=== PATIENT | male | born 1970 | race Two or more races ===

== ENCOUNTER 2022-05-16 17:51 | Emergency (ER) | payer SELFPAY ==
--- NOTE | ~2022-05-16 | XR_ITS ---
EXAMINATION: XR FOOT, LEFT CLINICAL INFORMATION: Injury to left foot. COMPARISON: None TECHNIQUE: AP, lateral, and oblique views of the left foot. FINDINGS: There is a comminuted fracture of the proximal phalange of the great toe. Fracture involves the mid to distal shaft does extend to the articular surface of the IP joint of the toe. Fracture fragments are slightly displaced. There is an associated soft tissue laceration at the lateral side of the base of the first toe. No radiopaque foreign body seen at the laceration. A bandage is present in the web space between the first and second toe. There are 2 metallic foreign bodies in the soft tissues at the plantar side of the foot. Each measure about 5 to 6 mm projecting over the arch of the foot. XR/XR foot LT min 3V IMPRESSION: Comminuted intra-articular fracture of the proximal phalange of the great toe. Associated laceration of great toe.
[2022-05-16 18:34] VITALS: BP 113/93; PULSE 84; RESP 18; O2SAT 96; BMI 30.2
== END 2022-05-16 22:19 | disposition left against medical advice (07) ==
PROVIDERS: Emergency Provider Emergency Medicine
DX: M79.672 Pain in left foot (principal)
CPT/HCPCS: 73630; 99281; 99283

== ENCOUNTER 2023-02-17 00:24 | Emergency (ER) | payer MEDICAID, OTHER, SELFPAY ==
--- NOTE | ~2023-02-17 | XR_ITS ---
EXAMINATION: XR CHEST CLINICAL INFORMATION: Chest pain COMPARISON: None available. TECHNIQUE: Frontal view of the chest was obtained. FINDINGS: No significant abnormality is noted involving the heart, lungs, mediastinum, bony thorax or soft tissues. XR/XR chest 1V IMPRESSION: Unremarkable chest examination.
[2023-02-17 00:42] VITALS: BP 125/83; BP 150/92; PULSE 70; PULSE 90; RESP 20; TEMP 37; O2SAT 95; O2SAT 96; BMI 32.6
--- NOTE | 2023-02-17 01:01 | ECG_ITS ---
Test Reason : CHEST PAIN Blood Pressure : / mmHG Vent. Rate : 070 BPM Atrial Rate : 070 BPM P-R Int : 166 ms QRS Dur : 100 ms QT Int : 394 ms P-R-T Axes : 053 028 024 degrees QTc Int : 425 ms Normal sinus rhythm Normal EKG No previous ECGs available Referred By: Corazon Chilel Electronically Signed By:LISA DE LEÓN
--- NOTE | 2023-02-17 01:02 | ED_ITS ---
HPI - Chest Pain General Chief Complaint: Chest Pain Stated Complaint: Chest pain History of Present Illness HPI narrative: Patient is a 52-year-old male with a history of coronary artery disease. Presents today with having midsternal chest pain radiating to bilateral shoulder. Patient claims he had a stent put in in 2013 somewhere in [place]. He did not remember to town. There is no shortness of breath has no diaphoresis associated with this pain it is however is similar to previous [facility]. Patient denies any leg swelling no history of blood clots. No history of diabetes positive history of hypertension no history of smoking no history of [facility] patient is from home. No long distance travel. Pain has improved after aspirin and nitropaste Related Data Allergies Allergy/AdvReac Type Severity Reaction Status Date / Time No Known Allergies Allergy Verified 05/16/22 18:34 Review of Systems Review of Systems: Positive chest pain Yes all other systems are reviewed and are negative [facility] Past Medical History Attestation statement: The following information was validated with the patient. Social History Social History Smoked in Last 30 Days: No Advance Directives: No Advance Directives Information Provided: No Physical Exam Vital Signs: Vital Signs: Last Vital Signs Temp 98.6 F 02/17/23 00:42 Pulse 70 02/17/23 00:42 Resp 20 02/17/23 00:42 BP 125/83 02/17/23 00:42 Pulse Ox 96 02/17/23 00:42 O2 Del Method Room Air 02/17/23 00:42 BMI result Body Mass Index 32.6 Appearance: Alert. Oriented X3. No acute distress. Eyes: Pupils equal, round and reactive to light. ENT: Pharynx normal. Neck: Normal inspection. Neck supple. No lymph nodes noted. No crepitus CVS: Normal heart rate and rhythm. Pulses normal. Normal S1 and S2 Respiratory: No respiratory distress. Breath sounds normal. No Wheezing. No rales Abdomen: Soft and nontender. No rigidity. No distention. good BS x4 Skin: Skin warm and dry. Normal skin color. Normal skin turgor. Extremities: No lower extremity edema. Neurovascular intact to all extremities. No Lacerations. No Rash Neuro: Oriented X 3. No motor deficit. No sensory deficit. Moving all extermities. No slurred speech Medications Administered Discontinued Medications Generic Name Dose Route Start Last Admin Trade Name Aida PRN Reason Stop Dose Admin Hydromorphone HCl 0.5 mg 02/17/23 01:01 02/17/23 01:44 Hydromorphone Hcl 0.5 Mg/0.5 Ml Syringe IVPUSH 02/17/23 01:02 0.5 mg ONCE ONE Administration Protocol Medical Decision Making Medical Decision Making [facility] Narrative: Positive chest pain. Patient claims it is very similar to her previous bouts of heart attack which required possible stenting. Patient claims that was done in another hospital in [place] but he is not sure which 1. It is not associated with shortness breath or diaphoresis. Patient's chest pain started approximately 45 minutes to an hour prior to arrival for sets of cardiac enzyme was negative. Second set of enzymes was in the 20s. A 3rd set of enzyme was done at 06:00 the results was over 60. Patient's repeat EKG is essentially unchanged. His 1st EKG done at 01:00 showed a sinus rhythm heart rate is 70 MD QRS QTC within normal limits there is no acute ST segment elevation noted. A 2nd EKG done at 06:30 also show sinus rhythm heart rate is 60 MD QRS QTC within normal limits there is no acute ST segment elevation. Patient chest pain is going. He is in no distress. There is E received aspirin. Will give a dose of Lovenox. Patient's case consulted by Cardiology. Bland patient would benefit being transferred to [facility]. Case discussed with patient. Risk and benefit of transfer explained. Risk including the risk of being on an ambulance. Benefit being Interventional Cardiology available at [facility] as patient have positive troponin. Case discussed with [facility] transfer center. [facility] has accepted transfer. Case discussed with Dr. Manjarrez Differential Diagnosis Differential Diagnoses: The differential diagnosis associated with the presentation includes NSTEMI Consult Healthcare Provider Management of the patient was discussed with: Music Engineer Cardiology Lab Data [facility] Lab Attestation statement: I reviewed the patient's lab results. 02/17/23 01:40 02/17/23 01:40 Labs: Lab Results 02/17/23 02/17/23 02/17/23 Range/Units 01:40 01:40 01:40 WBC 8.1 (4.8-10.8) X10*3/uL RBC 4.55 L (4.60-5.80) X10*6/uL Hgb 13.7 L (14.0-18.0) g/dl Hct 40.6 L (42.0-52.0) % MCV 89.2 (80.0-98.0) fL MCH 30.1 (27.0-33.0) pg MCHC 33.7 (31.0-36.0) g/dl RDW 12.6 (11.0-16.0) % Plt Count 281 (160-400) X10*3/uL MPV 9.3 L (9.4-12.4) fL Immature Gran % (Auto) 0.2 (0.0-0.4) % Neut % (Auto) 52.1 (45-73) % Lymph % (Auto) 32.1 (20-40) % [place] % (Auto) 10.3 (2-11) % Eos % (Auto) 4.7 H (0-4) % Baso % (Auto) 0.6 (0-2) % Lymph # (Auto) 2.6 (1.2-4.9) X10*3/uL [place] # (Auto) 0.8 (0.1-1.2) X10*3/uL Eos # (Auto) 0.4 (0.0-0.4) X10*3/uL Baso # (Auto) 0.1 (0.0-0.2) X10*3/uL Abs Immat Gran (auto) 0.02 (0.00-0.03) X10*3/uL Absolute Neuts (auto) 4.2 (2.0-8.3) x10*3/uL Absolute Nucleated RBC 0.000 (0.0-0.012) X10*3/uL Nucleated RBC % (auto) 0.0 (0.0-0.2) /100WBC Sodium 140 (135-145) mmol/L Potassium 3.8 (3.3-5.1) mmol/L Chloride 109 H (96-108) mmol/L Carbon Dioxide 22 (22-29) mmol/L Anion Gap 13 (12-20) BUN 16 (9-16) mg/dL Creatinine 0.88 (0.5-1.4) mg/dL Estim Creat Clear Calc 102.9 Estimated GFR > 60 Random Glucose 154 H (60-115) mg/dL Calcium 9.5 (8.4-10.2) mg/dL Troponin I High Sens 6.1 (<3.5-35.0) ng/L 02/17/23 02/17/23 Range/Units 04:09 05:54 WBC (4.8-10.8) X10*3/uL RBC (4.60-5.80) X10*6/uL Hgb (14.0-18.0) g/dl Hct (42.0-52.0) % MCV (80.0-98.0) fL MCH (27.0-33.0) pg MCHC (31.0-36.0) g/dl RDW (11.0-16.0) % Plt Count (160-400) X10*3/uL MPV (9.4-12.4) fL Immature Gran % (Auto) (0.0-0.4) % Neut % (Auto) (45-73) % Lymph % (Auto) (20-40) % [place] % (Auto) (2-11) % Eos % (Auto) (0-4) % Baso % (Auto) (0-2) % Lymph # (Auto) (1.2-4.9) X10*3/uL [place] # (Auto) (0.1-1.2) X10*3/uL Eos # (Auto) (0.0-0.4) X10*3/uL Baso # (Auto) (0.0-0.2) X10*3/uL Abs Immat Gran (auto) (0.00-0.03) X10*3/uL Absolute Neuts (auto) (2.0-8.3) x10*3/uL Absolute Nucleated RBC (0.0-0.012) X10*3/uL Nucleated RBC % (auto) (0.0-0.2) /100WBC Sodium (135-145) mmol/L Potassium (3.3-5.1) mmol/L Chloride (96-108) mmol/L Carbon Dioxide (22-29) mmol/L Anion Gap (12-20) BUN (9-16) mg/dL Creatinine (0.5-1.4) mg/dL Estim Creat Clear Calc Estimated GFR Random Glucose (60-115) mg/dL Calcium (8.4-10.2) mg/dL Troponin I High Sens 27.0 D 62.0 H D (<3.5-35.0) ng/L Independent Interpretation I performed an independent interpretation of an: EKG Interpretation: First EKG done at 01:30 in the morning shows sinus rhythm heart rate is 70 really are generous QT within normal limits as no acute ST segment elevation. Repeat EKG done at 06:30 in the morning shows essentially the same heart rate is approximately 65 MD QRS QTC within normal limits is no acute ST segment elevation. Radiology Impression Discussion of test interpretation with radiology: I have reviewed the radiologist's reading. Radiologist Impression: Chest x-ray negative Independent Historian Clinical information obtained from an independent historian. History obtained from or confirmed by: Spouse Chronic Conditions Coronary artery disease Critical Care Time Critical Care Time Critical Care Time: Yes Total Critical Care Time: 40 Attestation: I have personally provided 40 minutes of critical care time exclusive of time spent on separately billable procedures. Time includes review of lab data, radiology results, discussion with consultants, and monitoring for potential decompensation. Interventions were performed as documented above Discharge Plan Discharge Clinical Impression: Non-ST elevation [facility] (NSTEMI) Patient Disposition: Replaced By [facility] Transfer Details: [facility]
[2023-02-17] MEDS: HYDROmorphone HCl 0.5 MG/0.5 ML SYRINGE IVPUSH (01:44)
[2023-02-17 01:56] LABS: MANUAL DIFF FLAG NO
[2023-02-17 01:58] LABS: Basophils Absolute Auto 0.1 X10*3/uL (0.0-0.2); Basophils Percent Auto 0.6 % (0-2); Eosinophils Absolute Auto 0.4 X10*3/uL (0.0-0.4); Eosinophils Percent Auto 4.7 % (0-4); Hematocrit 40.6 % (42.0-52.0); Hemoglobin 13.7 g/dl (14.0-18.0); Imm Gran Abs Auto 0.02 X10*3/uL (0.00-0.03); Imm Gran Pct Auto 0.2 % (0.0-0.4); Lymphocytes Absolute Auto 2.6 X10*3/uL (1.2-4.9); Lymphocytes Percent Auto 32.1 % (20-40); Mean Corpuscular HGB Conc 33.7 g/dl (31.0-36.0); Mean Corpuscular Hemoglobin 30.1 pg (27.0-33.0); Mean Corpuscular Volume 89.2 fL (80.0-98.0); Mean Platelet Volume 9.3 fL (9.4-12.4); Monocytes Absolute Auto 0.8 X10*3/uL (0.1-1.2); Monocytes Percent Auto 10.3 % (2-11); Neutrophils Absolute Auto 4.2 x10*3/uL (2.0-8.3); Neutrophils Percent Auto 52.1 % (45-73); Platelet Count 281 X10*3/uL (160-400); Red Blood Count 4.55 X10*6/uL (4.60-5.80); Red Cell Distribution Width 12.6 % (11.0-16.0); White Blood Count 8.1 X10*3/uL (4.8-10.8)
[2023-02-17 02:15] LABS: Anion Gap 13 (12-20); Blood Urea Nitrogen 16 mg/dL (9-16); Calcium 9.5 mg/dL (8.4-10.2); Carbon Dioxide 22 mmol/L (22-29); Chloride 109 mmol/L (96-108); Creatinine Clr Calc Pharmacy 102.9; Estimated Glomerular Filt Rate > 60; Glucose Random 154 mg/dL (60-115); Potassium 3.8 mmol/L (3.3-5.1); Sodium 140 mmol/L (135-145)
[2023-02-17 02:20] LABS: Troponin-I High Sensitivity 6.1 ng/L (<3.5-35.0)
--- NOTE | 2023-02-17 06:32 | ECG_ITS ---
Test Reason : CHEST PAIN Blood Pressure : / mmHG Vent. Rate : 062 BPM Atrial Rate : 062 BPM P-R Int : 170 ms QRS Dur : 112 ms QT Int : 404 ms P-R-T Axes : 033 019 004 degrees QTc Int : 410 ms Normal sinus rhythm Normal ECG When compared with ECG of 17-FEB-2023 01:33, No significant change was found Referred By: Corazon Chilel Electronically Signed By:LISA DE LEÓN
[2023-02-17] MEDS: Enoxaparin Sodium 100 MG/ML SYRINGE 90 MG SUBCUT (07:19)
[2023-02-17 07:21] VITALS: BP 143/99; PULSE 72; RESP 9; TEMP 36.5; O2SAT 97
--- NOTE | 2023-02-17 07:25 | PC.NURSE ---
assumed care of pt at 0700. pt is pleasant, calm, and cooperative. a&o x4. pt visitor at bedside. vss, medicated per mar. resting quietly on stretcher in no apparent distress. awaiting transport to [facility] [place]. wctm
[2023-02-17 07:46] LABS: Hematocrit 43.5 % (42.0-52.0); Hemoglobin 14.6 g/dl (14.0-18.0); Mean Corpuscular HGB Conc 33.6 g/dl (31.0-36.0); Mean Corpuscular Hemoglobin 30.3 pg (27.0-33.0); Mean Corpuscular Volume 90.2 fL (80.0-98.0); Mean Platelet Volume 8.9 fL (9.4-12.4); Platelet Count 282 X10*3/uL (160-400); Red Blood Count 4.82 X10*6/uL (4.60-5.80); Red Cell Distribution Width 12.6 % (11.0-16.0); White Blood Count 8.3 X10*3/uL (4.8-10.8)
[2023-02-17 07:52] LABS: Prothrombin Time 11.6 SEC (10.0-13.1)
--- NOTE | 2023-02-17 07:55 | MHC.EDTECH ---
@[id number] called [facility] to request transfer. Individual on the phone requested to speak with Dr. Chilel regarding pt information and diagnosis. Dr. Chilel took the call right away.
--- NOTE | 2023-02-17 07:56 | MHC.EDTECH ---
@[id number] [facility] called back with a room assignment. Pt will be going to [facility] [place] [address], room 14. Nurse to Nurse number is .
[2023-02-17 08:03] LABS: IDNOW Serial# 9DB6401D
[2023-02-17 08:04] LABS: COVID-19 Test Negative (Negative)
[2023-02-17 08:42] VITALS: BP 141/87; PULSE 68; RESP 21; TEMP 36.6; O2SAT 96
--- NOTE | 2023-02-17 09:00 | PC.NURSE ---
this RN attempted to call for nurse to nurse report to [facility] x2. left message on receiving nurses line. will try again.
== END 2023-02-17 09:08 | disposition short-term general hospital (02) ==
PROVIDERS: Emergency Provider Emergency Medicine Emergency Medical Services
DX: I21.4 Non-ST elevation (NSTEMI) myocardial infarction (principal); I10 Essential (primary) hypertension; Z20.822 Contact with and (suspected) exposure to COVID-19
CPT/HCPCS: 36415; 71045; 80048; 84484; 85025; 85027; 85610; 85730; 87635; 93005; 96372; 96374; 99285; J1170; J1650

== ENCOUNTER 2023-04-09 11:32 | Outpatient (AMB) | payer MEDICAID, SELFPAY ==
--- NOTE | 2023-04-09 11:34 | A.OFFVIS_ITS ---
Intake Vital Signs 04/09/23 11:35 Height 5 ft 6 in Weight 213 lb 6.519 oz BMI 34.4 BP 100/64 Blood Pressure Location Lt brachial Position Sitting Pulse 65 Pulse Source Monitor Intake Visit Reasons: [facility] FUP AFTER CARDIAC CATH Intake Note: [facility] follow up with EKG after cardiac cath. Insurance Producer Required: Yes Insurance Producer Language: Citizen [place] Insurance Producer Name: Sally- daughter Accompanied by: Daughter Allergies No Known Allergies Allergy (Verified 04/09/23 11:39) Medication List - Last Reconciled 04/09/23 by Galo Nolan MD aspirin 81 mg PO DAILY atorvastatin 80 mg PO BEDTIME lisinopril 5 mg PO DAILY metformin 500 mg PO BID metoprolol succinate ER 100 mg PO DAILY ticagrelor (Brilinta) 90 mg PO BID 90 days HPI HPI Comments History of Present Illness Details Pleasant 52 year gentleman is here for follow-up. He has known history of coronary disease and underwent RCA PCI in the past in [place] few years ago. He presented to [facility] recently with chest discomfort and ruled in for NSTEMI. He was transferred to [facility] for diagnostic angiography. Diagnostic angiography showed severe ostial LAD and proximal LAD stenosis and mid RCA stenosis. These were treated with drug-eluting stents. He has been on aspirin ticagrelor and has been doing well. His has noticed that he gets short of breath when he exerts himself. He is going to cardiac rehabilitation but feels that he has not wished significantly there and does not get any symptoms there. He has no history of asthma. He is denying any dyspnea at rest or inability to take deep breaths which is usually described by patient as a side effect of Brilinta. PENDING SALE TO [facility] Surgical History (Updated 04/09/23 @ 12:06 by Galo Nolan MD) H/O hand surgery History of nasal surgery Hx of cardiac cath Family History Mother Heart disease HTN (hypertension) Diabetes Father HTN (hypertension) Diabetes Social History (Updated 04/09/23 @ 11:42 by DIANNA Torres) Alcohol intake: never Patient Tobacco Use Status: Never used Tobacco Review of Systems Const Denies weakness ENT Denies dizziness Card Denies chest pain, Denies chest pain with activity, Denies syncope, Denies rapid heart rate, Denies pedal edema, Denies edema, Denies leg edema, Denies lightheadedness, Denies palpitations, Denies dyspnea, Denies dyspnea on exertion and Denies orthopnea Resp Denies cough, Denies dyspnea and Denies dyspnea on exertion GI Denies hematochezia and Denies change in stool character Musc Denies abnormal gait, Denies muscle cramps, Denies muscle weakness, Denies numbness, Denies radiating pain into limb and Denies tingling Neuro Denies abnormal gait, Denies dizziness, Denies syncope, Denies numbness, Denies tingling and Denies weakness Endo Denies palpitations Physical Exam Vital Signs: Last Vital Signs Pulse 65 04/09/23 11:35 BP 100/64 04/09/23 11:35 BMI result Body Mass Index 34.4 GENERAL APPEARANCE: in no acute distress, pleasant. NECK: no carotid bruit, no jugular venous distention. SKIN: no suspicious lesions, warm and dry. HEART: no murmurs, regular rate and rhythm. LUNGS: clear to auscultation bilaterally. ABDOMEN: soft, nontender. EXTREMITIES: no edema. PERIPHERAL PULSES: equal. NEUROLOGIC: No gross deficits, AAO X 3 Office Procedures EKG Details: Sinus rhythm 65 beats per minute, normal axis, nonspecific inferior T-wave changes, QTC 405 milliseconds. [id number], Complete Assessment & Plan Assessment & Plan (1) S/P coronary angioplasty: Code(s): Z98.61 - Coronary angioplasty status (2) CAD (coronary artery disease): Code(s): I25.10 - Atherosclerotic heart disease of [place] coronary artery without angina pectoris Plan Very pleasant 52-year-old gentleman who is here for follow-up. He had LAD and RCA PCI. He is on aspirin and Brilinta. I think he should continue their dual antiplatelet therapy for at least a year. After that my plan would be to put him on Plavix monotherapy. If he has any affordability issues with ticagrelor or continues to complain of dyspnea then I think we should transition to Plavix after giving him a 300 mg load. His blood pressure is borderline low but he is denying any significant symptoms like dizziness or lightheadedness currently. I have advised him to keep himself well hydrated. He is doing cardiac rehabilitation regularly. We will get a fasting lipid panel on him. We will see back in few months. He is not in heart failure currently. I think with progressive cardiac rehabilitation is dyspnea will improve. If he continues to get dyspnea then will transition to Plavix. Thank you for allowing me to participate in the care of your patient. Please feel free to contact me if you have any questions. Orders: Orders Lipid Panel Today I25.10 - Atherosclerotic heart disease of [place] coronary artery without angina pectoris Coding Level of Care Code Est Pt Level 4 (52121) Diagnoses S/P coronary angioplasty Z98.61 CAD (coronary artery disease) I25.10 CPT Codes EKG - CPT: 03936-[id number], Complete ([id number])
[2023-04-09 11:35] VITALS: BP 100/64; PULSE 65; BMI 34.4
== END 2023-04-09 12:04 | disposition home or self-care (01) ==
PROVIDERS: Visit Provider Internal Medicine Cardiovascular Disease
DX: Z98.61 Coronary angioplasty status (principal); I25.10 Atherosclerotic heart disease of native coronary artery without angina pectoris
CPT/HCPCS: 93010; 99214

== ENCOUNTER → 2023-04-09 11:32 | Outpatient (BNVA) | payer MEDICAID, OTHER, SELFPAY | PROVIDERS: Visit Provider Internal Medicine Cardiovascular Disease | DX: I25.10 Atherosclerotic heart disease of native coronary artery without angina pectoris (principal); I10 Essential (primary) hypertension; I21.4 Non-ST elevation (NSTEMI) myocardial infarction; Z98.61 Coronary angioplasty status; Z98.890 Other specified postprocedural states | CPT/HCPCS: 93005; 99212 ==

== ENCOUNTER 2024-04-18 08:41 | Outpatient (AMB) | payer SELFPAY ==
[2024-04-18 08:43] VITALS: BP 100/62; PULSE 67; BMI 31.3
--- NOTE | 2024-04-18 08:43 | A.OFFVIS_ITS ---
Vital Signs 04/18/24 08:43 Height 5 ft 6 in Weight 194 lb 0.108 oz BMI 31.3 BP 100/62 Blood Pressure Location Rt brachial Position Sitting Pulse 67 Pulse Source Monitor Intake Visit Reasons: overdue f/u needs med Oil Expeller Required: No Oil Expeller Name: carmelo ojeda [id number] Allergies No Known Allergies Allergy (Verified 04/18/24 08:45) Medication List - Last Reconciled 04/18/24 by Radha Landers, INSPECTOR OF WEIGHTS AND MEASURES-C aspirin 81 mg PO DAILY atorvastatin 80 mg PO BEDTIME dulaglutide (Trulicity) 0.75 mg subcut QWEEK lisinopril 5 mg PO DAILY metformin 500 mg PO BID metoprolol succinate ER 100 mg PO DAILY ticagrelor (Brilinta) 90 mg PO BID 90 days HPI HPI overdue f/u needs med: Details: John is a 53-year-old male with past medical history of hyperlipidemia, CAD with prior RCA PCI in [place] a few years ago. Last year he had NSTEMI with placement of stents in the proximal LAD and mid RCA. His last prior visit to our office was 04/09/2023. Today he reports he has been doing well over the last year. He denies any chest discomfort at rest or with activity. He does report feeling short of breath when he squats. He denies shortness of breath when he is walking, climbing stairs or doing other physical activity. No PND, orthopnea or edema. No lightheadedness, presyncope, syncope, falls. 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 Taking all meds as directed. No bleeding issues reported. 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 [facility] Surgical History H/O hand surgery History of nasal surgery Hx of cardiac cath Family History Mother Heart disease HTN (hypertension) Diabetes Father HTN (hypertension) Diabetes Heart disease Social History Alcohol intake: never Patient Tobacco Use Status: Never used Tobacco Review of Systems Const All systems reviewed & are unremarkable except as noted in HPI and below ENT Denies dizziness Card Denies chest pain, Denies chest pain at rest, Denies chest pain with activity, Denies rapid heart rate, Denies pedal edema, Denies edema, Denies leg edema, Denies lightheadedness, Denies palpitations, Reports dyspnea, Denies dyspnea on exertion and Denies orthopnea Resp Denies cough, Reports dyspnea and Denies dyspnea on exertion GI Denies hematochezia and Denies change in stool character Musc Denies abnormal gait, Denies limited range of motion, Denies muscle cramps, Denies muscle weakness, Denies numbness, Denies radiating pain into limb, Denies stiffness and Denies tingling Neuro Denies abnormal gait, Denies dizziness, Denies numbness and Denies tingling Endo Denies palpitations Physical Exam Vital Signs: Last Vital Signs Pulse 67 04/18/24 08:43 BP 100/62 04/18/24 08:43 BMI result Body Mass Index 31.3 Const General: cooperative, healthy appearing, comfortable and no acute distress Orientation/consciousness: patient oriented x3 Neck Neck: Yes normal visual inspection and Yes no JVD Resp Effort & Inspection: normal respiratory effort Auscultation: clear to auscultation bilaterally, no rales, no rhonchi and no wheezes Cardio Jugular venous distension: no JVD Rate: regular rate Rhythm: regular rhythm Heart sounds: S1 normal heart sound present, S2 normal heart sound present, no murmurs and no rubs Neuro General: patient oriented x3 Extrem General: Yes normal to inspection, No no pedal edema and No calf tenderness Psych Appearance: grossly normal Mental Status: mental status grossly normal Speech and movement: Normal speech and movement present Office Procedures EKG Details: Today, read by me, normal sinus rhythm, possible inferior infarct, rate 67, QTC 414 milliseconds, overall no significant changes from prior. [id number], Complete Assessment & Plan Assessment & Plan (1) CAD (coronary artery disease): Code(s): I25.10 - Atherosclerotic heart disease of [place] coronary artery without angina pectoris Category: Medical Plan: History of CAD with reported RCA PCI in [place] a few years ago. Last January had NSTEMI with cardiac catheterization showing severe ostial LAD, proximal LAD stenosis 85%, mid to distal RCA stenosis 90%, with stents placed to the proximal LAD and mid RCA. He did attend cardiac rehab following his [place]. he was not seen in the office between 04/09/2023 and today. He states that he has done well over the last year. Today he reports no anginal symptoms. EKG today showing normal sinus rhythm, computer read of possible inferior infarct, inferior leads have slight Q-wave which is similar to prior EKG, rate 67. No echo in our system. Will obtain echocardiogram from [employer] system and scan into hours. It has been over 1 year of dual antiplatelet therapy. At this time will have him stop aspirin and Brilinta. Will start on clopidogrel 75 mg daily as single antiplatelet agent. On 1st day will start with 300 mg. Patient informed of this change in states understanding. Continue high-dose atorvastatin with ideal LDL goal less than 70. Continue lisinopril and metoprolol. Blood pressure currently well controlled. Will have her update labs today including CMP, CBC, lipids. Signs and symptoms of angina reviewed. Cardiology office visit in 6 months, sooner if needed. (2) S/P coronary angioplasty: Comment: Cardiac catheterization 02/19/2023, severe ostial LAD stenosis, proximal LAD 85% stenosis, mid to distal RCA 90% stenosis, stent to the proximal LAD and mid RCA Code(s): Z98.61 - Coronary angioplasty status Category: Surgical Plan: As above (3) Hyperlipidemia: Code(s): E78.5 - Hyperlipidemia, unspecified Category: Medical Plan: [place] LDL goal less than 70. He is on high-dose atorvastatin. Will check lipids today. Plan Time spent on chart review, documentation, interview and assessment Orders: Orders Comprehensive Met. Panel Today I25.10 - Atherosclerotic heart disease of [place] coronary artery without angina pectoris Complete Blood Count Auto Diff Today I25.10 - Atherosclerotic heart disease of [place] coronary artery without angina pectoris Lipid Panel Today I25.10 - Atherosclerotic heart disease of [place] coronary artery without angina pectoris Medications: New clopidogrel On 1st day only take 4 tablets (300mg), then take 1 tablet daily, (75 mg) Stop aspirin and Brilinta 75 mg PO DAILY 90 tabs 3RF Discontinued aspirin Discontinued Reason: Doctor's Order 81 mg PO DAILY 90 tabs 3RF ticagrelor (Brilinta) Discontinued Reason: Doctor's Order 90 mg PO BID 90 days 180 tabs 1RF Coding Level of Care Code Est Pt Level 4 (23563) Diagnoses CAD (coronary artery disease) I25.10 S/P coronary angioplasty Z98.61 Hyperlipidemia E78.5 CPT Codes EKG - CPT: 25662-[id number], Complete ([id number]) Time Spent (min) 28
== END 2024-04-18 09:15 | disposition home or self-care (01) ==
LOC: HO.HCS 08:41
PROVIDERS: Visit Provider Nurse Practitioner Family
DX: I25.10 Atherosclerotic heart disease of native coronary artery without angina pectoris (principal); Z98.61 Coronary angioplasty status; E78.5 Hyperlipidemia, unspecified
CPT/HCPCS: 93010; 99214

== ENCOUNTER 2024-04-18 08:41 | Outpatient (REF) | payer MEDICAID, OTHER, SELFPAY ==
[2024-04-18 09:29] LABS: MANUAL DIFF FLAG NO
[2024-04-18 10:20] LABS: Basophils Absolute Auto 0.1 X10*3/uL (0.0-0.2); Basophils Percent Auto 0.7 % (0-2); Eosinophils Absolute Auto 0.3 X10*3/uL (0.0-0.4); Hematocrit 45.6 % (42.0-52.0); Hemoglobin 15.1 g/dl (14.0-18.0); Imm Gran Abs Auto 0.02 X10*3/uL (0.00-0.03); Imm Gran Pct Auto 0.2 % (0.0-0.4); Lymphocytes Absolute Auto 2.5 X10*3/uL (1.2-4.9); Lymphocytes Percent Auto 30.4 % (20-40); Mean Corpuscular HGB Conc 33.1 g/dl (31.0-36.0); Mean Corpuscular Volume 90.7 fL (80.0-98.0); Mean Platelet Volume 9.5 fL (9.4-12.4); Monocytes Absolute Auto 0.8 X10*3/uL (0.1-1.2); Monocytes Percent Auto 9.7 % (2-11); Neutrophils Absolute Auto 4.6 x10*3/uL (2.0-8.3); Platelet Count 320 X10*3/uL (160-400); Red Blood Count 5.03 X10*6/uL (4.60-5.80); Red Cell Distribution Width 12.5 % (11.0-16.0); White Blood Count 8.3 X10*3/uL (4.8-10.8)
[2024-04-18 11:04] LABS: Alanine Aminotransferase 36 U/L (0-40); Albumin Level 4.2 g/dL (3.5-5.0); Alkaline Phosphatase 55 U/L (39-117); Anion Gap 12 (12-20); Aspartate Amino Transferase 28 U/L (5-37); Blood Urea Nitrogen 17 mg/dL (9-16); Calcium 9.7 mg/dL (8.4-10.2); Carbon Dioxide 24 mmol/L (22-29); Chloride 108 mmol/L (96-108); Cholesterol 207 mg/dL (<200); Estimated Glomerular Filt Rate > 60; Glucose Random 101 mg/dL (60-115); HDL Cholesterol 30 mg/dL (>40); LDL Cholesterol Calculated 148 mg/dL (<100); Potassium 4.5 mmol/L (3.3-5.1); Sodium 139 mmol/L (135-145); Triglycerides 149 mg/dL (<150)
== END 2024-04-18 08:42 | disposition home or self-care (01) ==
LOC: HO.LAB 08:41
PROVIDERS: Visit Provider Nurse Practitioner Family
DX: I25.10 Atherosclerotic heart disease of native coronary artery without angina pectoris (principal); E78.5 Hyperlipidemia, unspecified; Z98.61 Coronary angioplasty status; Z79.899 Other long term (current) drug therapy
CPT/HCPCS: 36415; 80053; 80061; 85025; 93005; 99212

== ENCOUNTER 2025-06-01 15:12 | Outpatient (AMB) | payer MEDICAID, SELFPAY ==
--- OUTSIDE RECORDS SUMMARY | 2025-05-28 09:20 | XMS_ITS | Encounter Summary ---
Author Organization [facility] Address [address] [place] [address] Care Team Providers Care Commercial Journeyman Electrician Name Role Phone Faustino Corado MD Primary Care Provider [phone] Reason for Referral * Podiatry (Routine) - New Request Specialty Diagnoses / Procedures Referred By Contac t Referred To Contact Diagnoses Type 2 diabetes mellitus without complication, without long-term current use of insulin Abdelrahman Medina PharmD [address] [place] [address] Phone: tel: fax: Nataliya Núñez RN [phone] [place] [address] Phone: tel: fax: Referral ID Status Reason Start Date Expiration Date Visits Requested Visits Authorized [id number] New Request Continuity of Care 05/28/2025 05/28/2026 1 1 Comments 55-year-old Georgian-speaking non-insulin dependent DM2 patient, unclear when completed last diabetic foot exam, please evaluate, thank you! Reason for Visit * Reason Comments Follow Up Dm/HTN Encounter Details Date Type Department Care Team (Late st Contact Info) Description 05/28/2025 9:20 AM EDT Office Visit [facility] [address] [place] [address] Abdelrahman Medina PharmD [address] [place] [id number] Social History Tobacco Use Types Packs/Day Years Used Date Smoking Tobacco: Never Smokeless Tobacco: Never Tobacco Cessation:Counseling Given: Not Answered Alcohol Use Standard Drinks/Week Comments Never 0 (1 standard drink = 0.6 oz pur e alcohol) Social Connections Answer Date Recorded Connectedness 0 05/09/2024 Financial Resource Strain Answer Date R ecorded Financial Resource Strain 0 2021 Stress Answer Date Recorded Stress 0 10/06/2021 Physical Activity Answer Date Recorded Physical Activity 0 10/06/2021 Food Insecurity Answer Date Recorded Food 0 05/22/2024 Transportation Needs Answer Date Record ed Transportation 0 10/06/2021 Housing Stability Answer Date Recorded Housing 0 10/06/2021 Safety and Environment Answer Date Yves rded Safety 0 10/06/2021 Utilities Answer Date Recorded Utilities 0 10/06/2021 Employment Answer Date Recorded Stress 0 05/09/2024 Sex and Gender Information Value Date Recorded Sex Assigned at Male 07/13/2023 6:27 AM PST Legal Sex Male 7:31 AM PST Gender Identity Male 07/13/2023 6:27 AM PST Sexual Orientation Straight 07/13/2023 6: 27 AM PST documented as of this encounter Last Filed Vital Signs Vital Sign Reading Time Taken Comments Blood Pressure 126/84 05/28/2025 9:02 AM EDT Pulse 69 05/28/2025 9:02 AM EDT Temperature 36.6 C (97.9 F) 05/28/2025 9:02 AM EDT Respiratory Rate 16 05/28/2025 9:02 AM EDT Oxygen Saturation - - Inhaled Oxygen Concentration - - Weight 81.2 kg (179 lb) 05/28/2025 9:02 AM EDT Height 173 cm (5' 8.11 ) 05/28/2025 9:02 AM EDT Body Mass Index 27.13 05/28/2025 9:02 AM EDT documented in this encounter Progress Notes * Abdelrahman Medina PharmD - 05/28/2025 9:42 AM EDT John Valderrama Sa is a 55 year old, Algerian Mohawk-speaking male who presents today for a follow-up visit in Diabetes Clinic with Abdelrahman Medina PharmD. Referred by Cristi Estrada MD. No geological science teacher needed for today's visit as provider speaks patient's familiar language. Accompanied by: None Subjective: Patient reports: Denies monitoring BG due to lack of interest. Denies bringing in glucometer. Running out of Trulicity 3 mg for the last 2 weeks, states he will flower picker from the pharmacy today or tomorrow. Requests refills on his lisinopril, metoprolol, atorvastatin and ezetimibe. Scheduled [facility] [place] next [place]. Denies experiencing bilateral peripheral extremity numbness or tingling. Polydipsia/polyphagia/polyuria? no Changes in diet: None, continues to work on diabetic diet. 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 New concerns: None Tobacco Use: Never Smoker Tobacco Intervention:provided smoking cessation counseling Alcohol Use: No alcohol use Additional OTC medications or supplements: acetaminophen PRN Specialists managing DM/HTN: Cardiology (Location: [facility] [place], Dr Galo Nolan, last seen 04/18/24, no- show 11/19/24, follow-up next week): see problem list Diabetes Current Diabetes RX: Trulicity 3 mg once weekly every Sunday HTN Current HTN RX: Lisinopril 5 mg daily (prescribed by [facility] [place]) Metoprolol succinate ER 100 mg daily (prescribed by [facility] [place]) Previous anti-hypertensives and reason for discontinuation: None Patient denies checking blood pressure at home due to lack of possession of BP monitor Objective: BGM Metrics: SMBG (BGM: Freestyle Lite) See patient reports, patient is not monitoring regularly Allergies reviewed: No Known Allergies BP 126/84 (Left Arm, Sitting, Regular Adult) Pulse 69 Temp 97.9 ??F (36.6 ??C) Resp 16 Ht 5' 8.11 (1.73 m) Wt 179 lb (81.2 kg) BMI 27.13 kg/m?? Smoking Status Never BSA 1.98 m?? Estimated Creatinine Clearance: 73.7 mL/min (by C-G formula based on SCr of 1.09 mg/dL). BP 126/84 at 05/28/2025 9:02 AM BP 100/70 at 01/01/2025 9:08 AM BP 110/70 at 09/29/2024 10:15 AM Wt Readings from Last 3 Encounters: 05/28/25 179 lb (81.2 kg) 03/23/25 178 lb (80.7 kg) 01/01/25 190 lb (86.2 kg) Lab Results Component Value Date HGBA1C 6.1 (H) 09/29/2024 HGBA1C 6.1 (H) 07/16/2023 Lab Results Component Value Date GLUCOSE 99 05/28/2025 EAG 7.1 07/16/2023 Lab Results Component Value Date URALBCREAT 3 09/19/2024 Lab Results Component Value Date VITB12 503 09/29/2024 FOLATE 14.1 09/29/2024 Lab Results Component Value Date NA 139 09/29/2024 K 4.6 09/29/2024 BUN 17 09/29/2024 BUNCREAT SEE NOTE: 09/29/2024 CREATININE 1.09 09/29/2024 EGFR 80 09/29/2024 Lab Results Component Value Date TSH 4.42 07/16/2023 Lab Results Component Value Date TRIGLYC 339 (H) 09/19/2024 CHOL 205 (H) 09/19/2024 HDL 60 09/19/2024 LDL 100 (H) 09/19/2024 CHOLHDL 3.4 09/19/2024 NONHDL 145 (H) 09/19/2024 The 10-year ASCVD risk score (Rosemary MARK, et al., 2019) is: 11.5% Assessment: Diabetes: Well-controlled and Need updated A1c, Lack of SMBG HTN: well-controlled ASCVD: Age 40-75 yo, DM, no ASCVD = moderate intensity statin recommended in addition to lifestyle therapy Plan: E11.9 Type 2 diabetes mellitus without complication, without long-term current use of insulin (primary encounter diagnosis) Plan : GLUCOSE, BLOOD BY GLUCOSE MONITORING DEVICE (CLIA WAIVED)POCT EZETIMIBE 10 MG TABLET - Take 1 Tablet by mouth once daily For cholesterol. ATORVASTATIN 80 MG TABLET - Take 1 Tablet by mouth nightly at bedtime For cholesterol. LISINOPRIL 5 MG TABLET - Take 1 Tablet by mouth every morning For blood pressure.. HEMOGLOBIN GLYCOSYLATED A1C LIPID PANEL REFERRAL TO FOOT CARE PHARMACOTHERAPY for diabetes Counseled patient on importance of monitoring BG at least 2-3 times per week. Recommended patient to complete A1c and lipid panel. Will continue current medications: Trulicity 3 mg once weekly every Sunday (counseled patient to flower picker from the pharmacy) I10 Essential hypertension Plan : METOPROLOL SUCCINATE ER 100 MG TABLET,EXTENDED RELEASE 24 HR - Take 1 Tablet by mouth every morning. BP/HR stable, will continue current medications, refilled per patient request. Counseled patient to attend [facility] [place] next week. 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 ATORVASTATIN 80 MG TABLET - Take 1 Tablet by mouth nightly at bedtime For cholesterol. LISINOPRIL 5 MG TABLET - Take 1 Tablet by mouth every morning For blood pressure.. LIPID PANEL METOPROLOL SUCCINATE ER 100 MG TABLET,EXTENDED RELEASE 24 HR - Take 1 Tablet by mouth every morning. Counseled patient to attend [facility] [place] app[place] next week. Continue Atorvastatin 80 mg daily and ezetimibe 10 mg daily Continue clopidogrel 75 mg daily E66.3,Z68.27 Overweight with body mass index (BMI) of 27 to 27.9 in adult Lifestyle measures:BMI follow up plan: The patient was counseled regarding nutrition and physical activity weight loss medication prescribed. Counseled patient on importance of diet and lifestyle (weight loss, low-sodium (REEVES) diet, decrease carbohydrates such as rice, bread, pasta and corn meal, increase non-starchy vegetables, no potatoes or corn, increase protein, and increase physical activity withat least 150 minutes of moderate physical activity per week). Trulicity 3 mg once weekly every Sunday (counseled patient to flower picker from the pharmacy) E78.2 Mixed hyperlipidemia Plan : ATORVASTATIN 80 MG TABLET - Take 1 Tablet by mouth nightly at bedtime For cholesterol. LIPID PANEL ASCVD: Per 202 ADA guidelines for lipid management, continue high-intensity statin: atorvastatin 80 mg daily and ezetimibe 10 mg daily Referral: Foot Exam: Issued internal referral to foot care with Nataliya DOMINGO Follow-Up: 07/16/25 @9 AM Patient agrees with plan of care and verbalizes understanding. Questions were answered. Education: Labs due A1c and Lipid panel - will review results and determine best therapy Medication Regimen: (indication, dosage, administration, storage, ADR, missing dose) BG testing and target/Alternate Site Testing Focus on consuming carbohydrates from high-fiber sources like whole grains, legumes, and fruits in controlled portions to help manage blood sugar levels, and aim to fill half your plate with non-starchy vegetables like leafy greens, broccoli, or peppers for added nutrients and fiber. Avoid sugary beverages like soda and limit sweets to special occasions, choosing healthier alternatives such as water, unsweetened tea, or low-calorie drinks to minimize blood sugar spikes Incorporate at least 150 minutes of moderate physical activity per week, such as brisk walking or cycling, to improve insulin sensitivity, enhance glucose control, and support overall cardiovascular health. Sign / Symptoms of Hyperglycemia / Hypoglycemia Hypoglycemia Treatment (Rule 15) Machine Setter Supervisor Complications Uncontrolled Diabetes Abdelrahman Medina PharmD documented in this encounter Miscellaneous Notes * Patient Instructions - Abdelrahman Medina PharmD - 05/28/2025 9:44 AM EDT Abelino Medina PharmD, [facility] Clinical Pharmacist [facility] [address] If you are not able to keep your appointment please call 24-48 hours before your appointment to cancel or reschedule. documented in this encounter Plan of Treatment Upcoming Encounters Date Type Department Care Team (Late st Contact Info) Description 07/16/2025 9:00 AM EST Office Visit [address] [address] Abdelrahman Medina PharmD [address] [place] [address] Scheduled Orders Name Type Priority Associated Diagnoses Orde r Schedule HEMOGLOBIN GLYCOSYLATED A1C Routine Lab Routine Type 2 diabetes mellitus without complication, without long-term current use of insulin ([facility]) Ordered: 05/28/2025 LIPID PANEL Routine Lab Routine Type 2 diabetes mellitus without complication, without long-term current use of insulin ([facility]) 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 Author Blood Pressure < 130/80 Blood Pressure 148/78( 025 10:56 AM EDT) Abdelrahman Martines PharmD Hypertension: Decrease sodium intake General No Abdelrahman Medina PharmD documented as of this encounter Procedures Procedure Name Priority Date/Time Associated Diagnosis Comments GLUCOSE, BLOOD BY GLUCOSE MONITORING DEVICE (CLIA WAIVED)POCT Routine 05/28/2025 9:04 AM EDT Type 2 diabetes mellitus without complication, without long-term current use of insulin documented in this encounter Results * GLUCOSE, BLOOD BY GLUCOSE MONITORING DEVICE (CLIA WAIVED)POCT Routine (05/28/2025 9:04 AM EDT) GLUCOSE 99 70 - 100 mg/dL [facility] POCT Capillary Blood Blood / Unknown 9:04 AM EDT us Abdelrahman Medina PharmD LAB - BLOOD DRAW Final Re sult [facility] OFFICE POCT documented in this encounter Visit Diagnoses Diagnosis Type 2 diabetes mellitus without complication, without long-term current use of insulin- Primary Essential hypertension 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
--- OUTSIDE RECORDS SUMMARY | 2025-06-01 11:20 | XMS_ITS | Encounter Summary ---
Author Organization [facility] Address [address] [place] [address] Care Team Providers Care Ldr Nurse Name Role Phone Faustino Corado MD Primary Care Provider [phone] Reason for Referral * Orthopedics (Routine) - New Request Specialty Diagnoses / Procedures Referred By Pérez lynn Referred To Contact Orthopedics Diagnoses Pain of left hip Kevin Grijalva PA-C [facility] [place] [address] Phone: tel: fax: Referral ID Status Reason Start Date Expiration Date Visits Requested Visits Authorized [id number] New Request Consultatio n to Other 06/01/2025 06/01/2026 1 1 Question Answer What is your specific consult question for the specialist? left hip pain x3-6 months. suspect OA left hip. X-ray, need MRI? Encounter Details Date Type Department Care Team ([facility] st Contact Info) Description 06/01/2025 11:20 AM EDT Office Visit [facility] [id number] [place] [address] Kevin Grijalva PA-C [address] [place] [address] Trell Alvarez [address] [place] [address] Social History Tobacco Use Types Packs/Day Years [...] Sign Reading Time Taken Comments Blood Pressure 148/78 06/01/2025 10:56 AM EDT Pulse 79 06/01/2025 10:56 AM EDT Temperature 37.2 C (98.9 F) 06/01/2025 10:56 AM EDT Respiratory Rate 16 06/01/2025 10:56 AM EDT Oxygen Saturation - - Inhaled Oxygen Concentration - - Weight 82.1 kg (181 lb) 06/01/2025 10:56 AM EDT Height - - Body Mass Index 27.43 05/28/2025 9:02 AM EDT documented in this encounter Plan of Treatment Upcoming Encounters Date Type Department Care Team (Late st Contact Info) Description 07/16/2025 9:00 AM EST Office Visit [facility] [address] [place] [address] Abdelrahman Medina PharmD [facility] [place] [address] Scheduled Referrals Name Type Priority Associated Diagnoses Orde r Schedule REFERRAL TO ORTHOPEDICS Referral Routine Pain of left hip Ordered: 06/01/2025 documented as of this encounter Goals Goal Patient Goal Type Associated Problems Recent Progress Patient-Stated? Author Blood Pressure < 130/80 Blood Pressure 148/78( 025 10:56 AM EDT) No Abdelrahman Medina, Te Hypertension: Decrease sodium intake General No Abdelrahman Medina, PharmD documented as of this encounter Visit Diagnoses Diagnosis Pain of left hip- Primary Non-Algerian speaking patient Problems with communication (including speech) documented in this encounter Additional Health Concerns Assessment Noted Time PHQ-9 Depression Total Score: 0 11/26/19 10:03 AM PDT A Depression follow-up plan has been documented for the patient 08/13/2024 10:49 AM PST documented as of this encounter Care Teams Ldr Nurse Relationship Specialty Start Date End Date Faustino Corado MD [address] [place] [address] PCP - General Family Medicine, Physician 05/15/24 documented as of this encounter
--- NOTE | 2025-06-01 15:21 | MHC.OFFVIS ---
Vital Signs 06/01/25 15:23 Height 5 ft 6 in Weight 180 lb 5.41 oz BMI 29.1 BP 130/80 Blood Pressure Location Lt brachial Position Sitting Pulse 68 Pulse Source Monitor Intake Visit Reasons: r/s 11/19/24 6 mos followup Intake Note: r/s 6 mth f/up Statistical Clerk Advertising Required: Yes Statistical Clerk Advertising Language: Yakut Statistical Clerk Advertising Name: [email or web address] Accompanied by: Self / Same As Patient Allergies No Known Allergies Allergy (Verified 04/18/24 08:45) Medication List - Last Reconciled 06/01/25 by Galo Nolan MD atorvastatin 80 mg PO BEDTIME clopidogrel 75 mg PO DAILY dulaglutide (Trulicity) 0.75 mg subcut QWEEK ezetimibe (Zetia) 10 mg PO DAILY lisinopril 5 mg PO DAILY metformin 500 mg PO BID metoprolol succinate ER 100 mg PO DAILY HPI Comments Details: Pleasant 55 year gentleman is here for follow-up. He has known history of coronary disease and underwent RCA PCI in the past in [place] few years ago. He presented to [facility] recently with chest discomfort and ruled in for NSTEMI. He was transferred to [facility] for diagnostic angiography. Diagnostic angiography showed severe ostial LAD and proximal LAD stenosis and mid RCA stenosis. These were treated with drug-eluting stents. He has been on aspirin ticagrelor and has been doing well. His has noticed that he gets short of breath when he exerts himself. He is going to cardiac rehabilitation but feels that he has not wished significantly there and does not get any symptoms there. He has no history of asthma. He is denying any dyspnea at rest or inability to take deep breaths which is usually described by patient as a side effect of Brilinta. 06/01/2025: He is here for follow-up. He has seen Radha in the office last year. He has not seen me since the PCI. He is taking Plavix monotherapy but also saying that he ran out of his medication in April and has not been taking all of his medications. New scripts were sent for him and he was advised to be compliant with medications and call if he is running out of medications. He is also saying that he is unable to follow up with our office because of insurance issues. I have given him details about the [facility] clinic in [facility]. 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 He is saying that he is quite symptomatic during exercise. He is denying any chest discomfort. [facility] Surgical History H/O hand surgery History of nasal surgery Hx of cardiac cath Family History Mother Heart disease HTN (hypertension) Diabetes Father HTN (hypertension) Diabetes Heart disease Social History Alcohol intake: never Patient Tobacco Use Status: Never used Tobacco Review of Systems Const Denies chills, Denies fatigue, Denies fever(s), Denies frequent falls, Denies weakness, Denies weight gain and Denies weight loss ENT Denies dizziness Card Denies chest pain, Denies leg edema, Denies lightheadedness, Denies palpitations, Denies dyspnea and Denies dyspnea on exertion Resp Denies cough, Denies dyspnea and Denies dyspnea on exertion GI Denies hematochezia Musc Denies abnormal gait, Denies muscle weakness, Denies numbness, Denies radiating pain into limb and Denies tingling Neuro Denies abnormal gait, Denies dizziness, Denies frequent falls, Denies numbness, Denies tingling and Denies weakness Endo Denies fatigue and Denies palpitations Physical Exam Vital Signs: Last Vital Signs Pulse 68 06/01/25 15:23 BP 130/80 06/01/25 15:23 BMI result Body Mass Index 29.1 GENERAL APPEARANCE: in no acute distress, pleasant. NECK: no carotid bruit, no jugular venous distention. SKIN: no suspicious lesions, warm and dry. HEART: no murmurs, regular rate and rhythm. LUNGS: clear to auscultation bilaterally. ABDOMEN: soft, nontender. EXTREMITIES: no edema. PERIPHERAL PULSES: equal. NEUROLOGIC: No gross deficits, AAO X 3 Office Procedures EKG Details: Sinus rhythm 68 beats per minute, inferior infarct, QTC 395 milliseconds. [id number], Complete Assessment & Plan Assessment & Plan (1) CAD (coronary artery disease): Code(s): I25.10 - Atherosclerotic heart disease of red devil coronary artery without angina pectoris Category: Medical (2) S/P coronary angioplasty: Comment: Cardiac catheterization 02/19/2023, severe ostial LAD stenosis, proximal LAD 85% stenosis, mid to distal RCA 90% stenosis, stent to the proximal LAD and mid RCA Code(s): Z98.61 - Coronary angioplasty status Category: Medical Plan [age] year gentleman who is here for follow-up. In 2022 presented with acute coronary syndrome and had PCI done. His symptoms were mainly shortness of breath at that point. He is returning for follow-up after proximally 1 year and he is complaining of dyspnea with activities. He is saying that this is affecting his work. Denying chest discomfort. We discussed about doing exercise stress testing but he is saying that his insurance is not being covered at [facility] anymore. He is asking to see a different practice. I am referring him to the [facility] in [place]. He will check with the [facility] rate clinic and if they can not take him for cardiovascular care then he will reach out to me. In that case we will arrange a stress test otherwise he will need testing through the new practice. He has not been taking medications regularly and I am sending his medications with 90 day supplies for now. Thank you for allowing me to participate in the care of your patient. Please feel free to contact me if you have any questions. Medications: Refilled atorvastatin 80 mg PO BEDTIME 90 tabs 3RF clopidogrel On 1st day only take 4 tablets (300mg), then take 1 tablet daily, (75 mg) Stop aspirin and Brilinta 75 mg PO DAILY 90 tabs 3RF metoprolol succinate ER Please call [phone] and schedule your 6 mo follow up you are over due. Thank you. 100 mg PO DAILY 60 tabs 0RF ezetimibe (Zetia) New cholesterol medication Taken addition to atorvastatin 10 mg PO DAILY 90 tabs 3RF Coding Level of Care Code Est Pt Level 3 (53250) Diagnoses CAD (coronary artery disease) I25.10 S/P coronary angioplasty Z98.61 CPT Codes EKG - CPT: 87890-[id number], Complete ([id number])
[2025-06-01 15:23] VITALS: BP 130/80; PULSE 68; BMI 29.1
--- OUTSIDE RECORDS SUMMARY | 2025-06-01 17:34 | XMS_ITS ---
Author Organization [facility] Address [address] [place] [address] Care Team Providers Care Industrial Sales Manager Name Role Phone Faustino Corado MD Primary Care Provider [id number] [facility] Program Status:Enrolled (Active) Start date:11/26/2023 Enrollment date:11/26/2023 Enrollment reason:Referred by provider Case Team Name Relationship Phone Abdelrahman Medina PharmD(Responsible Staff) [phone] Continued Care and Services Coordination
--- OUTSIDE RECORDS SUMMARY | 2025-06-01 17:34 | XMS_ITS | Clinical Summary ---
Author Organization [facility] Address [address] [place] [address] Care Team Providers Care Geoscience Laboratory Technician Name Role Phone Faustino Corado MD Primary Care Provider [phone] Source Comments PLEASE NOTE, if this patient is a minor, it may be UNLAWFUL to discuss sensitive information that is contained in these records (such as FAMILY PLANNING, MENTAL HEALTH or SUBSTANCE ABUSE) with the minor patient's parent or other person without the patient's specific authorization.[facility] Allergies No known active allergies Medications fluticasone (FLONASE) 50 mcg/actuation nasal spray Place 2 Sprays in both nostrils once daily 16 g 1 07/16/20 23 Active blood sugar diagnostic stripsIndications: Type 2 diabetes mellitus without complication, without long-term current use of insulin Use to test blood glucose once daily. (Freestyle Lite). 100 Each 3 10/31/19 24 Active lancets (FREESTYLE LANCETS) 28 gaugeIndications:T ype 2 diabetes mellitus without complication, without long-term current use of insulin Use to test blood glucose once daily. (Freestyle Lancets). 100 Each 3 10/31/19 24 Active alcohol swabsIndications:T ype 2 diabetes mellitus without complication, without long-term current use of insulin Use to test blood glucose once daily. 100 Each 3 10/31/19 24 Active blood-glucose meter monitoring kitIndications:Typ e 2 diabetes mellitus without complication, without long-term current use of insulin Use to test blood sugar once daily. (Freestyle Lite) 1 Each 10/31/19 24 Active blood pressure test kit-largeIndicatio ns:Essential hypertension SMBP Program - [facility] - Checking BP 4 to 5 times per week. ID: [id number] 1 Kit 11/26/19 24 Active clopidogreL (PLAVIX) 75 mg tabletIndications: Coronary artery disease of [place] artery of [place] heart with stable angina pectoris TAKE 75 MG BY MOUTH daily ON FIRST DAY ONLY TAKE 4 TABLETS (300mg) THEN TAKE ONE tablet daily. STOP aspirin AND Brilinta (prescribed by [facility]) 04/18/20 24 Active pantoprazole (PROTONIX) 40 mg EC tabletIndications: Gastroesophageal reflux disease without esophagitis Take 1 Tablet by mouth every morning before breakfast 90 Tablet 09/29/19 25 Active dulaglutide (TRULICITY) 3 mg/0.5 mL pen injectorIndication s:Type 2 diabetes mellitus without complication, without long-term current use of insulin Inject 3 mg into the skin once a week Every Sunday 2 mL 5 12/23/19 25 Active acetaminophen (TYLENOL) 500 mg tablet Take 1 Tablet by mouth every 6 (six) hours as needed for pain. 120 Tablet 1 03/23/20 25 Active ezetimibe (ZETIA) 10 mg tabletIndications: Type 2 diabetes mellitus without complication, without long-term current use of insulin,Coronary artery disease of [place] artery of [place] heart with stable angina pectoris Take 1 Tablet by mouth once daily For cholesterol. 90 Tablet 1 05/28/20 25 Active atorvastatin (LIPITOR) 80 mg tabletIndications: Type 2 diabetes mellitus without complication, without long-term current use of insulin,Coronary artery disease of [place] artery of [place] heart with stable angina pectoris,Mixed hyperlipidemia Take 1 Tablet by mouth nightly at bedtime For cholesterol. 90 Tablet 1 05/28/20 25 Active lisinopriL 5 mg tabletIndications: Type 2 diabetes mellitus without complication, without long-term current use of insulin,Coronary artery disease of [place] artery of [place] heart with stable angina pectoris Take 1 Tablet by mouth every morning For blood pressure.. 90 Tablet 1 05/28/20 25 Active diclofenac sodium (VOLTAREN) 1 % gel APPLY TOPICALLY TWICE DAILY 03/23/20 25 Active metoprolol succinate XL (TOPROL-XL) 100 mg 24 hr tabletIndications: Essential hypertension,Coron darshan artery disease of [place] artery of [place] heart with stable angina pectoris Take 1 Tablet by mouth every morning. 90 Tablet 1 05/28/20 25 Active atorvastatin (LIPITOR) 80 mg tablet Take 1 Tablet by mouth nightly at bedtime (Prescribed by [facility] - Dr. Nolan) 03/12/20 24 025 Discontin ued(Reord er (E-Cancel Not Sent)) lisinopriL 5 mg tablet Take 1 Tablet by mouth daily. (Prescribed by [facility] - Dr. Nolan) 03/12/20 025 Discontin ued(Reord er (E-Cancel Not Sent)) metoprolol succinate XL (TOPROL-XL) 100 mg 24 hr tablet Take 1 Tablet by mouth once daily (Prescribed by [facility] - Dr. Nolan) 03/12/20 025 Discontin ued(Reord er (E-Cancel Not Sent)) ezetimibe (ZETIA) 10 mg tabletIndications: Coronary artery disease of [place] artery of [place] heart with stable angina pectoris TAKE ONE TABLET BY MOUTH EVERY DAY. take with atorvastatin (prescribed by [facility] cardiology) 05/10/20 025 Discontin ued(Reord er (E-Cancel Not Sent)) meloxicam (MOBIC) 15 mg tablet Take 1 Tablet by mouth once daily. 90 Tablet 03/23/20 025 Discontin ued(Thera py completed /Not needed) Active Problems Problem Noted Date Diagnosed Date Overweight with body mass in dex (BMI) of 27 to 27.9 in adult 05/28/2025 Mixed hyperlipidemia 09/01/2024 Coronary artery disease of n ative artery of [place] heart with stable angina pectoris 07/16/2023 Overview (01/01/2025): Hx: Per [facility] cardio notes 04/09/23 - Underwent RCA PCI in [place] few years ago. He presented to [facility] recently with chest discomfort and ruled in for NSTEMI. He was transferred to [facility] for diagnostic angiography. Diagnostic angiography showed severe ostial LAD and proximal LAD stenosis and mid RCA stenosis. There were treated with drug-eluting stents. He has been on aspirin ticagrelor and has been doing well. Everolimus Eluting Coronary Stent placed on February 19, [address] Nolan ([facility] cardiology) No-show 11/19/24 at [facility] 04/18/24 at [facility] ECHO ordered. Normal EKG Stop aspirin and Brilinta, start clopidogrel 75 mg as single anti-platelet agent. 1st day start 300 mg. Continue high-dose atorvastatin with ideal goal less than 70 mg/dL Continue lisinopril and metoprolol BP well-controlled. Update labs, f/u 6 months, sooner if needed 04/09/23 [facility] cardiology Continue aspirin & Brilinta for at least a year. After that my plan would be to put him on Plavix monotherapy. If he has any affordability issues with ticagrelor or continues to complain of dyspnea then I think we should transition to Plavix. After giving him a 300 mg load . Gastroesophageal reflux disease without esophagi tis 07/16/2023 Type 2 diabetes mellitus wit hout complication, without long-term current use of insulin 07/16/2023 Overview (05/28/2025): DM dx: Apr 2023 per pt reports Glucometer: Freestyle Lite Current Diabetes RX: Trulicity 3 mg once weekly every Sunday RAFAELA-I/ARB: Lisinopril 5 mg daily (prescribed by [facility] cardiology) Urine microalbumin/Scr ratio: 3 mg/g (09/19/24) Statin: Atorvastatin 80 mg daily and ezetimibe 10 mg daily Pneumococcal vaccine: PCV20 (05/15/24) Diabetes foot exam: Foot care referral pending as of 05/28/25 Cancelled foot care appt with Nataliya on 12/29/23 Diabetes retinal exam: October 2023 in [place] per patient reports? Essential hypertension 07/16/2023 Resolved Problems Problem Noted Date Diagnosed Date Resolved Date Class 1 obesity due to exces s calories with serious comorbidity and body mass index (BMI) of 30.0 to 30.9 in adult 11/26/2023 05/15/2024 Hypercholesterolemia 07/16/2023 025 Encounters Date Type Department Care Team Description 06/01/2025 11:20 AM EDT Office Visit [address] [phone] Kevin Grijalva PA-C Martinez, Celestia 05/28/2025 9:20 AM EDT Office Visit [address] [phone] Abdelrahman Medina, PharmD 03/23/2025 10:20 AM EDT Office Visit [address] [phone] Cristi Estrada MD from Last 3 Months Immunizations Immunization Administration Dates Next Due Flu, Multi Dose 0.5 ML 06/22/2017 Flu, Preservative Free 07/16/2023,09/24/2022, Hep B,adult,adjuvanted (HEPLISAV) 09/23/2022 INFLUENZA, SEASONAL, INJECTA BLE, PRESERVATIVE FREE 06/07/2016 INFLUENZA, UNSPECIFIED 10/11/2012 Influenza (FLUBLOK),recombinant,injectable,preservati ve Free 05/15/2024 MMR (MMR II/Priorix) 10/03/2022 PNEUMOCOCCAL CONJUGATE PCV 20 (Prevnar 20) 05/15 TDAP 09/23/2022 Social History Tobacco Use Types Packs/Day Years [...] Orientation Straight 07/13/2023 6: 27 AM PST Last Filed Vital Signs Vital Sign Reading Time Taken Comments Blood Pressure 148/78 06/01/2025 10:56 AM EDT Pulse 79 06/01/2025 10:56 AM EDT Temperature 37.2 C (98.9 F) 06/01/2025 10:56 AM EDT Respiratory Rate 16 06/01/2025 10:56 AM EDT Oxygen Saturation 97% 01/01/2025 9:08 AM EDT Inhaled Oxygen Concentration - - Weight 82.1 kg (181 lb) 06/01/2025 10:56 AM EDT Height 173 cm (5' 8.11 ) 05/28/2025 9:02 AM EDT Body Mass Index 27.43 05/28/2025 9:02 AM EDT Plan of Treatment Upcoming Encounters Date Type Department Care Team (Late st Contact Info) Description 07/16/2025 9:00 AM EST Office Visit [facility] [address] [place] [address] Abdelrahman Medina, PharmD [address] [place] [address] Health Maintenance Due Date Last Done Comments Anxiety Screening 1969 Dental Examination 1969 Diabetes Foot Exam [address] Colonography 2014 Colonoscopy 2014 Flexible Sigmoidoscopy 2014 Imm-Zoster, Recombinant (1 of 2) 2019 Imm-Hepatitis B (2 of 2 - Cp G 2-dose series) 10/21/2022 09/23/2022 Depression Annual Screen 08/27/2024 11/26/2023 Hemoglobin A1c 03/29/2025 09/29/2024, 07/16/2023 [id number]-68 ( season) 2025 09/23/2021, 01/27/2021, 12/29/2020 Imm-Influenza (#1) 2025 05/15/2024, 1 09/15/2022, 09/24/2022, Additional history exists Annual Wellness (Adult): Ind icated (All Coverage) 08/13/2025 08/13/2024 Tobacco Screening 08/13/2025 08/13/2024, 10/31/2023 FIT/gFOBT 09/19/2025 09/19/2024 Lipid Screening 09/19/2025 09/19/2024, 07/16/2023 Urine Albumin Creatinine Rat io Screening 09/19/2025 09/19/2024, 07/16/2023 Serum Creatinine 09/29/2025 09/29/2024, , 07/16/2023 Colorectal Cancer Screening 09/19/2027 Fecal DNA 09/19/2027 09/19/2024 Imm-DTaP/Tdap/Td (2 - Td or Tdap) 09/23/2032 023 HIV Screening Completed 07/16/2023 Hepatitis C Screening Completed 07/16/2023 Imm-Pneumococcal 50+ Completed 05/15/2024 Alcohol and Drug Screen Completed 09/29/2024, 10/30 Goals Goal Patient Goal Type Associated Problems Recent Progress Patient-Stated? Author Blood Pressure < 130/80 Blood Pressure 148/78( 025 10:56 AM EDT) No Abdelrahman Medina, Te Hypertension: Decrease sodium intake General No Abdelrahman Median PharmD Procedures Procedure Name Priority Date/Time Associated Diagnosis Comments GLUCOSE, BLOOD BY GLUCOSE MONITORING DEVICE (CLIA WAIVED)POCT Routine 05/28/2025 9:04 AM EDT Type 2 diabetes mellitus without complication, without long-term current use of insulin BASIC METABOLIC PANEL CALCIUM TOTAL Routine 09/29/2024 10:53 AM EST HEMOGLOBIN GLYCOSYLATED A1C Routine 09/29/2024 10:53 AM EST Type 2 diabetes mellitus without complication, without long-term current use of insulin ([facility]) LIPID PANEL Routine 09/19/2024 9:59 AM EST Routine general medical examination at a health care facility MICROALBUMIN/CREATINI NE RATIO, URINE, RANDOM Routine 09/19/2024 9:59 AM EST Routine general medical examination at a health care facility COLOGUARD Routine 09/19/2024 3:00 AM EST Screening for colon cancer HIV 1/2 AG & AB W/RFLX (4TH GEN) Routine 07/16/2023 9:55 AM EST Exposure to potential infection HEPATITIS C AB W/RFLX HCV RNA, QT, RT PCR Routine 07/16/2023 9:55 AM EST Exposure to potential infection from Last 3 Months or Most Recently Relevant to Health Maintenance Results * GLUCOSE, BLOOD BY GLUCOSE MONITORING DEVICE (CLIA WAIVED)POCT Routine (05/28/2025 9:04 AM EDT) GLUCOSE 99 70 - 100 mg/dL [facility] OFFICE POCT Capillary Blood Blood / Unknown 9:04 AM EDT MailInBlacke Livermore PharmD LAB - BLOOD DRAW Final Re sult Performing Organization Address [facility]/ZIP Co de Phone Number [facility] POCT * (ABNORMAL) HEMOGLOBIN GLYCOSYLATED A1C (09/29/2024 10:53 AM EST) HEMOGLOBIN A1C 6.1(H) <5.7 % of total Hgb [facility] Comment: For someone without known diabetes, a hemoglobin A1c value between 5.7% and 6.4% is consistent with prediabetes and should be confirmed with a follow-up test. For someone with known diabetes, a value <7% indicates that their diabetes is well controlled. A1c targets should be individualized based on duration of diabetes, age, comorbid conditions, and other considerations. This assay result is consistent with an increased risk of diabetes. Currently, no consensus exists regarding use of hemoglobin A1c for diagnosis of diabetes for children. Blood Blood / Unknown 09/29/2024 1 0:53 AM EST 09/29/2024 10:54 AM EST Narrative [facility] - 09/30/2024 6:46 AM EST FASTING:NO MailInBlackodalis Medina PharmD LAB - BLOOD DRAW Edited R esult - Final Performing Organization Address City/[facility]/ZIP Co de Phone Number [employer] [address] [address], [facility] [address] [address] * (ABNORMAL) BASIC METABOLIC PANEL CALCIUM TOTAL (09/29/2024 10:53 AM EST) GLUCOSE 80 65 - 139 mg/dL [facility] Comment: Non-fasting reference interval UREA NITROGEN (BUN) 17 7 - 25 mg/dL [facility] CREATININE (blood) 1.09 0.70 - 1.30 mg/dL [facility] EGFR 80 > OR = 60 mL/min/1. 73m2 [facility] BUN/CREATININE RATIO SEE NOTE: [employer] [facility] Comment: Not Reported: BUN and Creatinine are within reference range. SODIUM 139 135 - 146 mmol/L [employer] [facility] POTASSIUM 4.6 3.5 - 5.3 mmol/L [employer] [facility] CHLORIDE 102 98 - 110 mmol/L [employer] [facility] CARBON DIOXIDE 28 20 - 32 mmol/L [facility] CALCIUM 10.9(H) 8.6 - 10.3 mg/dL [facility] 09/29/2024 10:5 3 AM EST 09/29/2024 10:54 AM EST Narrative [facility] - 09/30/2024 6:46 AM EST FASTING:NO us Abdelrahman Medina PharmD LAB - BLOOD DRAW Final Re sult Performing Organization Address City/State/[facility] Co de Phone Number [employer] [address] [address], [facility] [address] [address] * MICROALBUMIN/CREATININE RATIO, URINE, RANDOM (09/19/2024 9:59 AM EST) CREATININE, RANDOM URINE 168 20 - 320 mg/dL [facility] MICROALBUMIN 0.5 mg/dL [employer] [facility] Comment: Reference Range Not established MICROALBUMIN/CREA TININE RATIO, RANDOM URINE 3 <30 mg/g creat [employer] [facility] Comment: The ADA defines abnormalities in albumin excretion as follows: Albuminuria Category Result (mg/g creatinine) Normal to Mildly increased <30 Moderately increased 30-299 Severely increased > OR = 300 The ADA recommends that at least two of three specimens collected within a 3-6 month period be abnormal before considering a patient to be within a diagnostic category. Urine Urine specimen / Unknown 09/19/2024 9:59 AM EST 09/19/2024 10:00 AM EST Narrative [facility] - 09/20/2024 3:47 PM EST FASTING:NO Faustino Corado MD LAB URINE AMBULATORY Final Resul t [facility] [address] [address], [facility] [address] [place] [address] * (ABNORMAL) LIPID PANEL (09/19/2024 9:59 AM EST) CHOLESTEROL, TOTAL 205(H) <200 mg/dL [employer] [facility] HDL CHOLESTEROL 60 > OR = 40 mg/dL [facility] TRIGLYCERIDES 339(H) <150 mg/dL [facility] Comment: If a non-fasting specimen was collected, consider repeat triglyceride testing on a fasting specimen if clinically indicated. Niki et al. J. of Clin. Lipidol. 2015;9:129-169. LDL-CHOLESTEROL 100(H) 99 mg/dL (calc) [employer] [facility] Comment: Reference range: <100 Desirable range <100 mg/dL for primary prevention; <70 mg/dL for patients with CHD or diabetic patients with > or = 2 CHD risk factors. LDL-C is now calculated using the Dru-Mcmahon calculation, which is a validated novel method providing better accuracy than the Friedewald equation in the estimation of LDL-C. Dru SS et al. TRAY. 2013;310(19): 5692-9004 (http://education.SignalSet/faq/GEI190) CHOL/HDLC RATIO 3.4 <5.0 (calc) [facility] NON-HDL CHOLESTEROL 145(H) <130 mg/dL (calc) [facility] Comment: For patients with diabetes plus 1 major ASCVD risk factor, treating to a non-HDL-C goal of <100 mg/dL (LDL-C of <70 mg/dL) is considered a therapeutic option. Blood Blood / Unknown 09/19/2024 9 :59 AM EST 09/19/2024 10:00 AM EST Narrative [facility] [employer] - 09/20/2024 3:47 PM EST FASTING:NO us Faustino Corado MD LAB - BLOOD DRAW Final Result Performing Organization Address [facility] Co de Phone Number [facility] [place] [address] [address], [facility] [address] [address] * COLOGUARD (09/19/2024 3:00 AM EST) Stool Stool specimen / Unknown 09/19/2024 3:00 AM EST us Faustino Corado MD LAB BODY FLUIDS AND STOOLS AMBUL ATORY Edited Result - Final Performing Organization Address [facility] de Phone Number [facility] [address] [place] [address], [facility] [address] [facility] [id number] [place] [address], * Hep C Antibody with Reflex HCV RNA (07/16/2023 9:55 AM EST) HEPATITIS C ANTIBODY NON-REACT EDUARDO NON-REACT EDUARDO [facility] Comment: HCV antibody was non-reactive. There is no laboratory evidence of HCV infection. In most cases, no further action is required. However, if recent HCV exposure is suspected, a test for HCV RNA (test code 99000) is suggested. For additional information please refer to http://education.[employer]/faq/VRQ04r9 (This link is being provided for informational/ educational purposes only.) Blood Blood / Unknown 07/16/2023 9 :55 AM EST 07/16/2023 9:55 AM EST Narrative [facility] [employer] - 07/17/2023 9:04 PM EST FASTING:NO us Cristi Estrada MD LAB - BLOOD DRAW Edited Resu lt - Final Performing Organization Address [facility] Co de Phone Number [employer] [facility] [address] [address], [employer] [facility] [address] [place] [address] * HIV Ag & Ab with Reflex Western Blot (07/16/2023 9:55 AM EST) HIV AG/AB, 4TH GEN NON-REAC TIVE NON-REAC TIVE [employer] [facility] Comment: HIV-1 antigen and HIV-1/HIV-2 antibodies were not detected. There is no laboratory evidence of HIV infection. PLEASE NOTE: This information has been disclosed to you from records whose confidentiality may be protected by state law. If your state requires such protection, then the state law prohibits you from making any further disclosure of the information without the specific written consent of the person to whom it pertains, or as otherwise permitted by law. A general authorization for the release of medical or other information is NOT sufficient for this purpose. For additional information please refer to http://education.Kredits/faq/AOC842 (This link is being provided for informational/ educational purposes only.) The performance of this assay has not been clinically validated in patients less than 2 years old. Blood Blood / Unknown 07/16/2023 9 :55 AM EST 07/16/2023 9:55 AM EST Narrative [facility] - 07/17/2023 9:04 PM EST FASTING:NO us Cristi Estrada MD LAB - BLOOD DRAW Final Resul t [facility] [address] [address], [employer] [place] [facility] [address] [place] [address] from Last 3 Months or Most Recently Relevant to Health Maintenance [place] [facility] D[facility] MEDICAID Care Teams Geoscience Laboratory Technician Relationship Specialty Start Date End Date Faustino Corado MD [address] [place] [address] PCP - General Family Medicine, Physician 05/15/24
== END 2025-06-01 15:43 | disposition home or self-care (01) ==
PROVIDERS: Visit Provider Internal Medicine Cardiovascular Disease
DX: I25.10 Atherosclerotic heart disease of native coronary artery without angina pectoris (principal); Z98.61 Coronary angioplasty status
CPT/HCPCS: 99213

== ENCOUNTER → 2025-06-01 15:12 | Outpatient (BNVA) | payer MEDICAID, SELFPAY | PROVIDERS: Visit Provider Internal Medicine Cardiovascular Disease | DX: I25.10 Atherosclerotic heart disease of native coronary artery without angina pectoris (principal); Z98.61 Coronary angioplasty status | CPT/HCPCS: 99212 ==